=== PATIENT | female | born 1970 | race Caucasian/White ===

== ENCOUNTER 2016-02-21 15:06 | Outpatient (RCR) | payer BC ==
--- OUTSIDE RECORDS SUMMARY | 2015-11-25 16:02 | XMS REPORT | Continuity of Care Document ---
Author Author [facility] Organization [facility] Address Unknown Phone Unavailable Care Team Providers Care Sheet Rocker Name Role Phone Jacquelyn Richardson PCP [phone] Source Comments Some departments are not documenting in the electronic medical record. If you do not see the information that you expected, contact Release of Information in the Health Information Management department at [phone] for further assistance in locating additional records.[facility] Active Allergies and Adverse Reactions Allergen Noted Date Severity Reactions Comments Oxycodone 12/05/2014 Low ITCHING Took steroid or benadryl in the past for relief of itching Current Medications Prescription Sig. Disp. Refills Start End Date Status Date Desvenlafaxine (PRISTIQ) Take 1 Tab by mouth Active 100 mg Tb24 daily. omepraz[address](+) Take 40 mg by mouth Active (PRILOSEC) 40 mg capsule daily. metoprolol XL (TOPROL XL) Take 50 mg by mouth Active 50 mg tablet daily. Ranitidine HCl 150 mg cap Take 1 Cap by mouth daily Active as needed. Cetirizine 10 mg cap Take 1 Cap by mouth Active daily. vitamins, multiple tablet Take 1 Tab by mouth Active daily. folic acid 400 mcg tablet Take 400 mcg by mouth Active daily. calcium carbonate/vitamin Take 1 Tab by mouth Active D-3 (OSCAL-500+D) 1250 daily. Calcium Carb mg/200 unit tablet 1250mg delivers 500mg elemental Ca ascorbic acid (VITAMIN-C) Take 3,000 mg by mouth Active 500 mg tablet daily. BIOTIN/FA/VIT Take 1 Tab by mouth Active BCOMP&C/ZINC (BIOTIN daily. FORTE PO) hydrochlorothiazide Take 25 mg by mouth Active (HYDRODIURIL) 25 mg daily. tablet estradiol(+) (CLIMARA) Apply 1 Patch to top of Active 0.025 mg/24 hr patch skin as directed every 7 days. traMADol (ULTRAM) 50 mg Take 50 mg by mouth every Active tablet 6 hours as needed for Pain. Active Problems Problem Noted Date S/P hysterectomy 12/11/2014 Endometrial adenocarcinoma (HCC) 11/18/2014 Overview: Ms Hendrix is a 44 yo with a FIGO grade 1-2, Stage II adenocarcinoma of the uterus. CERTIFIED LEGAL SECRETARY SPECIALIST: Cee Thibodeaux MD PCP: Jacquelyn Richardson DO PRIOR THERAPY: 1. Ms Hendrix is a 44 yo who was seen by Dr. Cee Thibodeaux on 10/24/2014 for thickened endometrium ,menorrhagia and obesity. Prior to her visit with Dr. Thibodeaux, an ultrasound was done which showed a thickened endometrium of 1.8 cm with abnormal blood flow. Dr. Thibodeaux saw her on 10/24/2014 and did an EMB. Endometrial carcinoma, FIGO grade 1, arising in a background of CAH. 2. On 12/11/2014 she underwent a RA-TLHBSO,, & bilateral PLND. All 19 LN were negative; her tumor was 5 cm and extended into the cervix. I recommended postoperative radiation. Vaginal Cuff. The Gynecologic Oncology Group (GOG) defines high intermediate-risk based on age and any of three pathologic factors: the presence of deep myometrial invasion, grade 2 or 3 histology, or the presence of lymphovascular space invasion (LVSI) . Women have high intermediate-risk disease if they are: greater than 70 years with one risk factor, age 50 to 69 years with two risk factors. In the GOG 99 trial, two-thirds of all recurrences were in women who met these criteria. There is no known tests demonstrating size as a stratification. She has a close margin of 4 mm, but no LVSI and DOI within the endometrium is 3mm/12mm. I suspect her closest margin is due to the cervix. Her tumor is ER+, Her2/nu and P53 negative (Type I). She was last seen on 05/13/15 for follow up. She started vaginal cylinder brachytherapy treatments on 02/12/15 and completed therapy on 02/27/15. She was treated to 30 Gy in 5 fractions prescribed to the vaginal surface. She presents to the office today, 08/08/2015 for routine follow up. Last pap: 05/14/2015- normal L ast Assessment & Plan: Clinically AGUSTIN ROS and examination are negative. PLAN: RV in 11/2015, then only with Dr. Thibodeaux. Surveillance with pelvic and pap for an additional year, then yearly. Stop pap smears after 2 years. Discussed signs/symptoms associated with recurrence. Social History Tobacco Use Types Packs/Day Years Used Date Never Smoker Smokeless Tobacco: Never Used Alcohol Use Drinks/Week oz/Week Comments Yes 0 Standard 0.0 every once in a while. drinks or equivalent Last Filed Vital Signs Vital Sign Reading Time Taken Blood Pressure 127/66 08/08/2015 1:51 PM CDT Pulse 70 08/08/2015 1:51 PM CDT Temperature 36.6 C (97.9 F) 08/08/2015 1:51 PM CDT Respiratory Rate 18 08/08/2015 1:51 PM CDT Height 1.651 m (5' 5") 08/08/2015 1:51 PM CDT Weight 95.89 kg (211 lb 6.4 oz) 08/08/2015 1:51 PM CDT Body Mass Index 35.18 08/08/2015 1:51 PM CDT Oxygen Saturation 99% 08/08/2015 1:51 PM CDT Plan of Care Date Type Specialty Providers Description 12/05/2015 Appointment Oncology Nataliia Lai MD [address] [facility] [address] [place] [address] [phone] (Fax) 12/05/2015 Appointment Radiation Therapy Randy Parker MD [address] [facility] [address] [place] [address] [phone] (Fax) Health Maintenance Due Date Last Done Comments Physical (Comprehensive) 1976 Exam Pertussis Vaccine 1980 Tetanus Vaccine 1986 Breast Cancer Screening 2009 Influenza Vaccine 10/24/2015 Cervical Cancer Screening 05/13/2018 05/14/2015 Results from Last 3 Months Not on file
[~2016-02-21 15:06] MED LIST: DESV100T PO; DIAZ5TAB PO; DULO20CA; HCT25T; HORMONE PATCH TOP; KCL20TCR; LORA10CA PO; METO50TA2 PO; MULT-608; NAPR500T PO; NF-ESOM40C; OMEP10SU PO; ONDA8TAB13 PO; OXYC-202 PO; OXYC-464 PO; OXYC-471 PO; PRM25T PO
== END 2016-02-23 | disposition home or self-care (01) ==
PROVIDERS: ATTEND Physician Assistant
DX: S42.301D Unspecified fracture of shaft of humerus, right arm, subsequent encounter for fracture with routine healing (principal); W19.XXXD Unspecified fall, subsequent encounter; Y99.8 Other external cause status

== ENCOUNTER 2016-09-18 10:32 | Outpatient (RCR) | payer BC ==
[2016-10-08] MEDS ORDERED: LOVA20TA2 PO (16:56)
[2016-10-08] MEDS ORDERED: TRIA1TAB5 PO (16:56)
[2016-10-08] MEDS ORDERED: METO-272 PO (16:56)
[2016-10-08] MEDS ORDERED: ESTR42.52 TP (16:56)
[2016-10-08] MEDS ORDERED: OMEP40CA36 PO (16:56)
[2016-10-08] MEDS ORDERED: ERGO50006 PO (16:56)
[2016-10-08] MEDS ORDERED: DESV100T16 PO (16:56)
[2016-10-08] MEDS ORDERED: ESTR1PAT92 TD (16:56)
[2016-10-08] MEDS ORDERED: MULT-141 PO (16:58)
== END 2016-11-21 | disposition home or self-care (01) ==
LOC: CARD 10:32
PROVIDERS: ATTEND Internal Medicine Cardiovascular Disease
DX: R00.2 Palpitations (principal)
CPT/HCPCS: 93225; 93226

== ENCOUNTER → 2016-09-18 | Outpatient (CLI) | payer BC ==
[2016-09-18 11:47] LABS: ALANINE AMINOTRANSFERASE 27 U/L (0-55); ALBUMIN 3.8 GM/DL (3.2-4.5); ANION GAP 7 MMOL/L (5-14); ASPARTATE AMINO TRANSFERASE 23 U/L (5-34); BILIRUBIN,TOTAL 0.5 MG/DL (0.1-1.0); BLOOD UREA NITROGEN 13 MG/DL (7-18); BUN/CREATININE RATIO 17; CALCIUM 9.1 MG/DL (8.5-10.1); CARBON DIOXIDE 30 MMOL/L (21-32); CHLORIDE 103 MMOL/L (98-107); CHOLESTEROL 224 MG/DL (< 200); CREATININE SERUM 0.76 MG/DL (0.60-1.30); DIRECT LDL 154 MG/DL (1-129); GFR ESTIMATED > 60; GLUCOSE 83 MG/DL (70-105); POTASSIUM 3.9 MMOL/L (3.6-5.0); SODIUM 140 MMOL/L (135-145); TOTAL PROTEIN 7.5 GM/DL (6.4-8.2); TRIGLYCERIDES 169 MG/DL (<150); VLDL CHOLESTEROL 34 MG/DL (5-40)
[2016-09-18 12:06] LABS: THYROID STIMULATING HORMONE 2.21 UIU/ML (0.35-4.94)
== END ==
LOC: LAB 10:37
PROVIDERS: ATTEND Physician Assistant
DX: R07.89 Other chest pain (principal); E78.2 Mixed hyperlipidemia; R00.2 Palpitations
CPT/HCPCS: 36415; 80053; 80061; 82306; 83735; 84443

== ENCOUNTER 2016-10-08 14:59 | Observation (INO) | payer BC ==
[~2016-10-08] VITALS: Ht 165.1 cm; Wt 98.0 kg
[~2016-10-08 14:59] MED LIST changes: -OMEP10SU PO; +OMEP10SU2 PO
[2016-10-08] MEDS ORDERED: fentaNYL INJECTION 100 MCG/2 ML AMP IVP PRN (15:15)
[2016-10-08 16:23] VITALS: BP 153/73
[2016-10-08] MEDS ORDERED: OMEP40CA36 PO (16:56)
[2016-10-08] MEDS ORDERED: ESTR42.52 TP (16:56)
[2016-10-08] MEDS ORDERED: ESTR1PAT92 TD (16:56)
[2016-10-08] MEDS ORDERED: METO-370 PO (16:56)
[2016-10-08] MEDS ORDERED: ERGO50006 PO (16:56)
[2016-10-08] MEDS ORDERED: LOVA20TA2 PO (16:56)
[2016-10-08] MEDS ORDERED: DESV100T16 PO (16:56)
[2016-10-08] MEDS ORDERED: TRIA1TAB5 PO (16:56)
[2016-10-08] MEDS ORDERED: MULT-141 PO (16:58)
[2016-10-08] MEDS: NS IV 1000 ML 1,000 ML IV SCH (17:06)
[2016-10-08 17:07] LABS: BILIRUBIN,URINE NEGATIVE (NEGATIVE); KETONES,URINE NEGATIVE (NEGATIVE); LEUKOCYTE ESTERASE ,URINE NEGATIVE (NEGATIVE); NITRITE,URINE NEGATIVE (NEGATIVE); PH,URINE 6 (5-9); PROTEIN,URINE NEGATIVE (NEGATIVE); UROBILINOGEN,URINE NORMAL (NORMAL)
[2016-10-08] MEDS: ONDANSETRON 4 MG/2 ML (SDV) Z0FRAN IVP PRN ×2 (17:10→23:01)
[2016-10-08 17:17] LABS: SQUAMOUS EPITHELIAL CELL,UR RARE /HPF; WBC,URINE RARE /HPF
[2016-10-08] MEDS ORDERED: ESTRADIOL TD SCH (17:30)
[2016-10-08] MEDS ORDERED: [UNRECOGNIZED DRUG - OTHER] TD SCH (17:30)
[2016-10-08] MEDS ORDERED: NS 100 ML (IVPB) BAG IV ONE (18:15)
[2016-10-08] MEDS ORDERED: IOHEXOL 350 MG/ML 100 ML (OMNIPAQUE 350) VIAL IV ONE (18:15)
[2016-10-08 18:18] LABS: BASOPHILS % (AUTO) 0 % (0-10); EOSINOPHILS # (AUTO) 0.3 10^3/uL (0.0-0.3); EOSINOPHILS % (AUTO) 3 % (0-10); LYMPHOCYTES # (AUTO) 1.7 X 10^3 (1.0-4.0); LYMPHOCYTES % (AUTO) 20 % (12-44); MEAN CORPUSCULAR HEMOGLOBIN 30 PG (25-34); MEAN CORPUSCULAR HGB CONC 33 G/DL (32-36); MEAN CORPUSCULAR VOLUME 91 FL (80-99); MEAN PLATELET VOLUME 10.5 FL (7.4-10.4); MONOCYTES # (AUTO) 0.7 X 10^3 (0.0-1.0); MONOCYTES % (AUTO) 8 % (0-12); NEUTROPHILS # (AUTO) 5.6 X 10^3 (1.8-7.8); NEUTROPHILS % (AUTO) 68 % (42-75); PLATELET COUNT 326 10^3/uL (130-400); RED CELL DISTRIBUTION WIDTH 13.2 % (10.0-14.5); WHITE BLOOD COUNT 8.2 10^3/uL (4.3-11.0)
[2016-10-08 18:19] LABS: ALANINE AMINOTRANSFERASE 26 U/L (0-55); ALBUMIN 3.8 GM/DL (3.2-4.5); AMYLASE 75 U/L (25-125); ANION GAP 10 MMOL/L (5-14); ASPARTATE AMINO TRANSFERASE 21 U/L (5-34); BILIRUBIN,TOTAL 0.4 MG/DL (0.1-1.0); BLOOD UREA NITROGEN 10 MG/DL (7-18); BUN/CREATININE RATIO 13; CALCIUM 8.9 MG/DL (8.5-10.1); CARBON DIOXIDE 26 MMOL/L (21-32); CHLORIDE 103 MMOL/L (98-107); GFR ESTIMATED > 60; GLUCOSE 91 MG/DL (70-105); LIPASE 17 U/L (8-78); POTASSIUM 3.1 MMOL/L (3.6-5.0); SODIUM 139 MMOL/L (135-145); TOTAL PROTEIN 7.1 GM/DL (6.4-8.2)
--- NOTE | 2016-10-08 18:35 | Diagnostic Imaging Report ---
PROCEDURE: CT abdomen and pelvis with contrast. TECHNIQUE: Multiple contiguous axial images were obtained through the abdomen and pelvis after administration of intravenous contrast. INDICATION: Left lower quadrant pain. FINDINGS: The gallbladder is absent. There are fatty changes in the liver. The bile ducts are not dilated. The spleen, pancreas and adrenals are normal. The kidneys, ureters and bladder are normal. No acute bowel abnormality is seen with no evidence of diverticulitis. There is no pelvic mass. There is no free intraperitoneal air or fluid. IMPRESSION: No acute abnormality is seen. There are fatty changes in the liver. Dictated by: Dictated on workstation # [id number]
[2016-10-08 18:45] LABS: ERYTHROCYTE SEDIMENTATION RATE 28 MM/HR (0-20)
[2016-10-08 20:00] VITALS: BP 137/70
[2016-10-08] MEDS ORDERED: SIMvastatin 10 MG (ZOCOR) TAB PO SCH (21:00)
[2016-10-08] MEDS ORDERED: LORazepam INJ 2 MG/ML (ATIVAN) VIAL IVP PRN (21:30)
[2016-10-08] MEDS: POTASSIUM CL 10MEQ/50ML IVPB 50 ML IV SCH (22:54)
[2016-10-09] VITALS: BP 124/78
[2016-10-09] MEDS: POTASSIUM CL 10MEQ/50ML IVPB 50 ML IV SCH ×7 (00:30→16:06)
[2016-10-09] MEDS: NS IV 1000 ML 1,000 ML IV SCH ×3 (01:49→16:07)
[2016-10-09 04:00] VITALS: BP 122/66
[2016-10-09] MEDS ORDERED: MULTIVIT W/MINERALS TAB (THERAGRAN M) PO SCH (07:00)
[2016-10-09] MEDS ORDERED: VENlafaxine XR 75 MG (EFFEXOR XR) CAP PO SCH (07:00)
[2016-10-09] MEDS ORDERED: PANTOPRAZOLE 40 MG (PROTONIX) TAB PO SCH ×2 (07:00→09:00)
[2016-10-09 07:21] LABS: BASOPHILS % (AUTO) 1 % (0-10); EOSINOPHILS # (AUTO) 0.2 10^3/uL (0.0-0.3); EOSINOPHILS % (AUTO) 4 % (0-10); LYMPHOCYTES # (AUTO) 1.4 X 10^3 (1.0-4.0); LYMPHOCYTES % (AUTO) 24 % (12-44); MEAN CORPUSCULAR HEMOGLOBIN 30 PG (25-34); MEAN CORPUSCULAR HGB CONC 33 G/DL (32-36); MEAN CORPUSCULAR VOLUME 93 FL (80-99); MEAN PLATELET VOLUME 10.6 FL (7.4-10.4); MONOCYTES # (AUTO) 0.6 X 10^3 (0.0-1.0); MONOCYTES % (AUTO) 10 % (0-12); NEUTROPHILS # (AUTO) 3.6 X 10^3 (1.8-7.8); NEUTROPHILS % (AUTO) 62 % (42-75); PLATELET COUNT 274 10^3/uL (130-400); RED BLOOD COUNT 4.03 10^6/uL (4.35-5.85); RED CELL DISTRIBUTION WIDTH 13.1 % (10.0-14.5); WHITE BLOOD COUNT 5.8 10^3/uL (4.3-11.0)
[2016-10-09 07:44] LABS: ALANINE AMINOTRANSFERASE 22 U/L (0-55); ALBUMIN 3.3 GM/DL (3.2-4.5); ANION GAP 10 MMOL/L (5-14); ASPARTATE AMINO TRANSFERASE 16 U/L (5-34); BILIRUBIN,TOTAL 0.5 MG/DL (0.1-1.0); BLOOD UREA NITROGEN 8 MG/DL (7-18); BUN/CREATININE RATIO 10; CALCIUM 8.5 MG/DL (8.5-10.1); CARBON DIOXIDE 24 MMOL/L (21-32); CHLORIDE 107 MMOL/L (98-107); CREATININE SERUM 0.77 MG/DL (0.60-1.30); GFR ESTIMATED > 60; GLUCOSE 94 MG/DL (70-105); POTASSIUM 3.3 MMOL/L (3.6-5.0); SODIUM 141 MMOL/L (135-145); TOTAL PROTEIN 6.2 GM/DL (6.4-8.2)
[2016-10-09 08:00] VITALS: BP 129/65
--- NOTE | 2016-10-09 08:43 | Short Stay Summary-Hospitalist ---
HPI History of Present Illness: HPI/Chief Complaint CC: LLQ abdominal pain with dehydration HPI: This is a 46-year-old white female clinic patient of mine with a past medical history of hyperlipidemia and glucose intolerance the presented to my office as a work in appointment due to fever and weakness. She reports she hadn 't been eating or drinking too well the last several days and fever was 100 at home but denied any cough muscle aches sore throat or bowel problems. Upon exam she had left lower quadrant pain consistent with possible diverticulitis since she had not had a colonoscopy since she was under the age of 49 so I empirically placed on IV fluids obtained CT scan and consult to Dr. Hank luong performed her cholecystectomy in the past and admitted her for observation. All of her labs remain normal and CT scan showed no evidence of a diverticulitis so this was deemed a febrile viral illness with exhaustion from a change of job and commuting back and forth to [place] and will discharge her and close follow-up at the clinic will be arranged. Hypokalemia and dehydration were both addressed during hospitalization likely contributing to weakness. Source: patient Exam Limitations: no limitations Date Seen 10/09/16 Time Seen by Provider: 07:30 Attending Physician Jacquelyn Richardson DO PCP Jacquelyn Richardson DO Referring Physician Date of Admission Oct 08, 2016 at 16:06 Home Medications & Allergies Home Medications Reviewed patient Home Medication Reconciliation Form Allergies Allergies Coded Allergies NKANo Known Allergies (Unverified Allergy, Mild, 06/22/09) Past Yzkcrhi-Vxuggi-Vxgati Hx Patient Social History Marrital Status: Employed/Student: employed Alcohol Use: Occasionally Uses Recreational Drug Use: No Smoking Status: Never a Smoker Physical Abuse Screen: No Sexual Abuse: No Recent Foreign Travel: No Contact w/other who traveled: No Recent Infectious Disease Expo: No Immunizations Up To Date Tetanus Booster (TDap): More than 5yrs Date of Influenza Vaccine: Nov 23, 2015 Seasonal Allergies Seasonal Allergies: No Surgeries HX Surgeries: Yes (BRACHITHERAPY, Carin, Carpel Tunnel Syndrome, Cyst removal from ovaries) Surgeries: Gallbladder, Hysterectomy Respiratory Hx Respiratory Disorders: No Cardiovascular Hx Cardiovascular Disorders: Yes Cardiac Disorders: High Cholesterol, Hypertension, Palpitations Neurological Hx Neurological Disorders: No Genitourinary Hx Genitourinary Disorders: No Gastrointestinal Hx Gastrointestinal Disorders: Yes Gastrointestinal Disorders: Gastroesophageal Reflux Musculoskeletal Hx Musculoskeletal Disorders: No Endocrine Hx Endocrine Disorders: No HEENT HX ENT Disorders: No Cancer Hx Cancer: Yes Cancer: Uterine Psychosocial Hx Psychiatric Problems: Yes Behavioral Health Disorders: Depression Blood Transfusions Hx Blood Disorders: No Adverse Reaction to a Blood Tr: No Family Medical History Significant Family History: No Pertinent Family Hx Family Hx: Neoplasm 19 FATHER 19 MOTHER Review of Systems Constitutional: see HPI, chills, fever, weakness EENTM: no symptoms reported Respiratory: no symptoms reported Cardiovascular: no symptoms reported Gastrointestinal: no symptoms reported Musculoskeletal: no symptoms reported Skin: no symptoms reported Psychiatric/Neurological: No Symptoms Reported All Other Systems Reviewed Negative Unless Noted: Yes Physical Exam Physical Exam Vital Signs Vital Sign - Last 12Hours 10/08/16 16:23 Temp 98.0 Pulse 89 Resp 20 B/P (MAP) 153/73 Pulse Ox 95 O2 Delivery Room Air Capillary Refill : General Appearance: No Apparent Distress, WD/WN, Other (actuely ill and dehydrated and weak) Eyes: Bilateral Eye Normal Inspection, Bilateral Eye PERRL HEENT: PERRL/EOMI, Normal ENT Inspection, Pharynx Normal Neck: Full Range of Motion, Normal Inspection, Non Tender, Supple, Carotid Bruit Respiratory: Chest Non Tender, Lungs Clear, Normal Breath Sounds, No Accessory Muscle Use, No Respiratory Distress Cardiovascular: Regular Rate, Rhythm, No Edema, No Gallop, No JVD, No Murmur, Normal Peripheral Pulses Gastrointestinal: Normal Bowel Sounds, No Organomegaly, No Pulsatile Mass, Non Tender (LLQ pain noted yesterday is resolved), Soft Back: Normal Inspection, No CVA Tenderness, No Vertebral Tenderness Extremity: Normal Capillary Refill, Normal Inspection, Normal Range of Motion, Non Tender, No Calf Tenderness, No Pedal Edema Neurologic/Psychiatric: Alert, Oriented x3, No Motor/Sensory Deficits, Normal Mood/Affect Skin: Normal Color, Warm/Dry Lymphatic: No Adenopathy Results Results/Procedures Lab Laboratory Tests 10/08/16 17:40 10/09/16 06:28 Short Stay Diagnosis Discharge Diagnosis-Short Stay Admission Diagnosis Assessment: Acute onset left lower quadrant abdominal pain on exam with dehydration during office visit placed in observation status placed on IV fluids replace potassium and CT scan revealed no diverticulitis Hypertension History of palpitations managed by Dr. Ortiz on metoprolol Hyperlipidemia Glucose intolerance Uterine cancer status post hysterectomy Depression Final Discharge Diagnosis Assessment: Acute onset left lower quadrant abdominal pain on exam with dehydration during office visit placed in observation status placed on IV fluids replace potassium and CT scan revealed no diverticulitis Hypertension History of palpitations managed by Dr. Ortiz on metoprolol Hyperlipidemia Glucose intolerance Uterine cancer status post hysterectomy Depression Conclusion Plan Plan: Discharge home DC IV fluids after potassium is replaced Follow-up my clinic next week Clinical Quality Measures DVT/VTE Risk/Contraindication: Risk Factor Score Per Nursin RFS Level Per Nursing on Admit: 2=Moderate JACQUELYN RICHARDSON DO Oct 09, 2016 08:43
[2016-10-09] MEDS ORDERED: LORATADINE (CLARITIN) 10 MG TAB PO SCH (09:00)
[2016-10-09] MEDS ORDERED: meTOproloL SUCCINATE 50 MG (TOPROL XL) TAB PO SCH (09:00)
[2016-10-09] MEDS ORDERED: TRIAMTERENE/HCTZ 75-50 (MAXZIDE,DYAZIDE) TABLET PO SCH (09:00)
[2016-10-09] MEDS ORDERED: VITAMIN D2 50,000 UNITS (1.25 MG) CAP PO SCH (09:00)
[2016-10-09] MEDS: MAGNESIUM 1 GM/100 ML IVPB 100 ML IV SCH ×2 (10:12→11:28)
[2016-10-09] MEDS: ONDANSETRON 4 MG/2 ML (SDV) Z0FRAN IVP PRN (10:27)
[2016-10-09 12:00] VITALS: BP 134/67
[2016-10-09 16:20] VITALS: BP 123/65
--- NOTE | 2016-10-11 04:42 | CONSULTATION REPORT ---
DATE OF SERVICE: 10/08/2016 ATTENDING/PRIMARY CARE PHYSICIAN: Dr. Jacquelyn Richardson. HISTORY OF PRESENT ILLNESS: The patient is a 46-year-old female with mild fevers as well as feelings of some stomach upset followed by nausea for the past five days. She reports that she has had a history of peptic ulcer disease and has taken PPI acid reducers as well as Carafate before in the past. She reports that this time around for the past five days she has had some mild fevers on an intermittent basis and has not had any hunger and has become dehydrated. She also reports that she has had some epigastric crampy pain as well as a burning sensation. Since being admitted and placed on IV antibiotics and being started on Protonix she has felt considerably better and even does feel hungry at this point. A CT scan was also performed which did not show any abnormalities. Lab work was also normal. She does report that she is under a significant amount of stress due to work as well as commuting longer for work, which is new for her and that has caused a significant amount of stress in her life. We feel that her symptoms are most likely secondary due to a viral etiology; however also a stress-induced gastritis. PAST MEDICAL HISTORY: Anxiety, gastroesophageal reflux disease, peptic ulcer disease, depression. PAST SURGICAL HISTORY: Laparoscopic cholecystectomy and bilateral carpal tunnel release, ovarian cystectomy. ALLERGIES: No known drug allergies. MEDICATIONS: Triamterene/hydrochlorothiazide 75/50 mg daily, omeprazole 40 mg daily, metoprolol 50 mg daily, lovastatin 20 mg daily, loratadine 10 mg daily, estradiol 42 gram cream four days a week, estradiol 0.025 patch 2 days a week, venlafaxine 100 mg daily. SOCIAL HISTORY: Negative smoke, negative alcohol. FAMILY HISTORY: Mother breast cancer. VITAL SIGNS: Temperature 97.8, blood pressure 137/70, pulse 86, respirations 21, pulse ox 97% on room air. REVIEW OF SYSTEMS: Well-nourished female currently in no acute distress. She is not experiencing any shortness of breath or difficulty breathing. No chest pain, palpitations, diaphoresis. Intermittent episodes of nausea; however, no vomiting as well as intermittent episodes of mild fevers, which have resolved. No diarrhea, constipation, no red blood per rectum, no dark tarry stools. Mild fevers, no recent inadvertent weight loss. All other review of systems negative. PHYSICAL EXAMINATION: CHEST: Clear. Good breath sounds bilaterally. HEART: Regular, no murmurs. EXTREMITIES: No lower extremity edema, negative Homans sign. HEENT: No scleral icterus. NECK: No cervical lymphadenopathy. ABDOMEN: Soft with mild discomfort in the upper abdominal region upon deep palpation. There are no peritoneal signs, no guarding, no rebound. No hernias. SKIN: Warm and dry. LABORATORY DATA: WBC 8.2, hemoglobin 13.2, hematocrit 40, platelets 326, total bilirubin 0.4, AST 21, ALT 26, alkaline phosphatase 98, amylase 75, lipase 17. Urinalysis a few bacteria. ASSESSMENT AND PLAN: A 46-year-old female with a viral gastritis as well as stress-induced gastritis. Due to her symptoms she has had intermittent episodes of fevers as well as nausea and dehydration which has exacerbated her symptoms. She has done much better since being IV hydrated and placed on Protonix. We will advance her diet and when she is tolerating a diet and liquids and does feel better, she may be discharged home. We will start her on Protonix 40 mg b.i.d. for the next 2 weeks and then on a daily basis as well as Carafate 1 gram q.i.d. for the next two weeks and then on a p.r.n. basis. She does have a significant amount of anxiety and we will also proceed with a trial of alprazolam 1 mg t.i.d. p.r.n. Job ID: [id number] DocumentID: [id number] Dictated Date: 10/08/2016 21:41:10 Photolettering Machine Operator Date: 10/08/2016 22:38:53 Dictated By: MADISON LANDERS MD [facility]
[2016-10-12] MEDS ORDERED: ESTRADIOL VAGINAL CREAM 42.5 GM (ESTRACE) VG SCH (17:30)
== END 2016-10-09 08:39 | disposition home or self-care (01) ==
LOC: UNDOADMOB 16:06 → 4TH 16:06 → UNDODISOB 10-09 17:20
PROVIDERS: ADMIT Internal Medicine; ATTEND Internal Medicine
DX: R10.32 Left lower quadrant pain (principal); E86.0 Dehydration; I10 Essential (primary) hypertension; R00.2 Palpitations; E78.5 Hyperlipidemia, unspecified; E74.39 Other disorders of intestinal carbohydrate absorption; F33.9 Major depressive disorder, recurrent, unspecified; K21.9 Gastro-esophageal reflux disease without esophagitis; F41.9 Anxiety disorder, unspecified; Z90.49 Acquired absence of other specified parts of digestive tract; Z90.710 Acquired absence of both cervix and uterus; Z85.42 Personal history of malignant neoplasm of other parts of uterus
CPT/HCPCS: 36415; 74177; 80053; 81000; 82150; 83690; 85025; 85652; 99211; G0378

== ENCOUNTER → 2017-01-27 | Outpatient (CLI) | payer BC ==
[~2017-01-27] MED LIST changes: +DESV100T16 PO; +ERGO50006 PO; +ESTR1PAT92 TD; +ESTR42.52 TP; +LOVA20TA2 PO; +METO-370 PO; +METO50TA15 PO; -METO50TA2 PO; +MULT-141 PO; +NAPR-1071 PO; -NAPR500T PO; +OMEP40CA36 PO; +TRIA1TAB5 PO
--- NOTE | 2017-01-28 18:58 | Diagnostic Imaging Report ---
Bilateral screening mammogram 2D views with tomosynthesis The current study was also evaluated with a Computer Aided Detection (CAD) system. INDICATION: Screening. No current complaints stated on the questionnaire. COMPARISON: 05/16/2015. FINDINGS: The breasts are composed of heterogeneously dense parenchyma which may decrease mammographic sensitivity. Allowing for technique and positional differences, no suspicious change is seen. IMPRESSION: Dense breasts with no definite change. ACR BI-RADS Category 2: Benign findings. Result letter will be mailed to the patient. Note: At least 10% of breast cancer is not imaged by mammography. Dictated by: Dictated on workstation # [id number]
== END ==
LOC: RAD 10:27
PROVIDERS: ATTEND Obstetrics & Gynecology
DX: Z12.31 Encounter for screening mammogram for malignant neoplasm of breast (principal)

== ENCOUNTER 2017-09-23 09:25 | Emergency (ER) | payer BC ==
[~2017-09-23] VITALS: Ht 165.1 cm; Wt 93.9 kg
--- NOTE | 2017-09-23 10:05 | ED Lower Extremity ---
General Chief Complaint: Lower Extremity Stated Complaint: LT ANKLE PAIN Nursing Triage Note: TO ROOM PER W/C REPORTS WAS WALKING DOWN STAIRS WHEN SHE TWISTED HER ANKLE .C/O PAIN IN L ANKLE. Nursing Sepsis Screen: No Definite Risk Source: patient Exam Limitations: no limitations History of Present Illness Date Seen by Provider: Sep 23, 2017 Time Seen by Provider: 09:26 Initial Comments Patient presents to ER by private conveyance with a chief complaint that this morning while getting out of her house carrying an arm load of boxes she missed her step and rolled her ankle. She is rolled this ankle before in the past. Sure a popping sensation and now she is having pain and inability to us put pressure on it. She put ice on it initially but has not taken any Tylenol. She did take some Motrin and says it is not helping with the pain yet. She does not have any other significant medical or surgical history other than multiple fractures and ORIF right upper extremity. She does not have any allergies. No numbness weakness but she feels that her toes are cold now. She is not diabetic. Allergies and Home Medications Allergies Uncoded Allergies: pain meds (Adverse Reaction, Intermediate, make her itch, 09/23/17) takes benadryl before taking. Home Medications Desvenlafaxine Succinate 100 Mg Tab.er.24h, 100 MG PO DAILY, (Reported) Ergocalciferol (Vitamin D2) 50,000 Unit Capsule, 50,000 UNITS PO UD, (Reported) TAKES 2 TIMES PER WEEK / HAS NOT STARTED THIS MEDICATION OF YET Estradiol 1 Each Patch.tdsw, 1 PATCH TD SuTh, (Reported) Estradiol 42.5 Gm Cream.appl, 1 GM TP Ever, (Reported) Loratadine 10 Mg Capsule, 10 MG PO DAILY, (Reported) Lovastatin 20 Mg Tablet, 20 MG PO DAILY, (Reported) HAS NOT STARTED OF YET Metoprolol Succinate 50 Mg Tab.er.24h, 50 MG PO DAILY, (Reported) Multivit with Calcium,Iron,Min 1 Each Tablet, 1 TAB PO DAILY, (Reported) Omeprazole 40 Mg Capsule.dr, 40 MG PO DAILY, (Reported) Triamterene/Hydrochlorothiazid 1 Each Tablet, 1 TAB PO DAILY, (Reported) Patient Home Medication List Home Medication List Reviewed: Yes Constitutional: No chills, No diaphoresis EENTM: No ear discharge, No ear pain Respiratory: No short of breath, No wheezing Cardiovascular: No chest pain Gastrointestinal: No abdominal pain, No constipation, No diarrhea, No nausea, No vomiting Genitourinary: No discharge, No dysuria : No Musculoskeletal: see HPI; No back pain; joint pain Skin: No pruritus, No rash Past Zanlxjm-Xqmnmu-Lhkxlm Hx Patient Social History Alcohol Use: Denies Use Number of Drinks Today: Alcohol Beverage of Choice: Wine Recreational Drug Use: No Smoking Status: Never a Smoker Recent Foreign Travel: No Contact w/Someone Who Travel: No Recent Infectious Disease Expo: No Immunizations Up To Date Tetanus Booster (TDap): More than 5yrs PED Vaccines UTD: Yes Date of Influenza Vaccine: Nov 23, 2015 Seasonal Allergies Seasonal Allergies: No Past Medical History Surgeries: Yes (BRACHITHERAPY, Carin, Carpel Tunnel Syndrome, Cyst removal from ovaries) Gallbladder, Hysterectomy Respiratory: No Cardiac: Yes High Cholesterol, Hypertension, Palpitations Neurological: No COORDINATOR OF EVALUATION History: Hysterectomy Gastrointestinal: Yes Gastroesophageal Reflux Musculoskeletal: No Endocrine: No Cancer: Yes Uterine Psychosocial: Yes Depression Blood Disorders: No Adverse Reaction/Blood Tranf: No Family Medical History Neoplasm 19 FATHER 19 MOTHER No Pertinent Family Hx Physical Exam Vital Signs Vital Signs - First Documented 09/23/17 09:26 Temp 97.2 Pulse 87 B/P (MAP) 139/108 (118) Pulse Ox 97 O2 Delivery Room Air Capillary Refill : Less Than 3 Seconds Height, Weight, BMI Height: 5'5.00" Weight: 207lbs. 0.0oz. 93.427704dw; 35.9 BMI Method:Stated General Appearance: WD/WN, no apparent distress HEENT: PERRL/EOMI, pharynx normal Neck: full range of motion, normal inspection Cardiovascular: normal peripheral pulses, regular rate, rhythm Respiratory: no respiratory distress, no accessory muscle use Ankles: right ankle non-tender; bilateral ankle normal inspection; right ankle normal range of motion, right ankle no evidence of injury; left ankle bone tenderness (proximal base of the fifth metatarsal as well as over the navicular bone are tender to palpation.), left ankle limited range of motion Feet: bilateral foot other (dorsal pedal and posterior tibial pulses 2 out of 4 bilateral symmetric) Neurologic/Tendon: normal sensation, normal motor functions, normal tendon functions, responds to pain, no evidence tendon injury Neurologic/Psychiatric: no motor/sensory deficits (sensation intact times all 5 digits.), alert, normal mood/affect, oriented x 3 Skin: normal color, warm/dry Progress/Results/Core Measures Results/Orders My Orders Orders - RITO PENNINGTON Foot, Left, 3 Views (09/23/17 09:35) Vital Signs/I&O 09/23/17 09:26 Temp 97.2 Pulse 87 B/P (MAP) 139/108 (118) Pulse Ox 97 O2 Delivery Room Air Blood Pressure Mean: 118 Progress Progress Note : Time: 10:04 Progress Note Pain is localized in the foot more so than the ankle so we'll x-ray the foot 3 views. We have offered her pain medicine and she has declined at this time. Diagnostic Imaging Diagonstic Imaging: Xray Plain Films/CT/US/NM/MRI: other (left foot 3 view) Comments VIA [facility], [facility]. [place], [place] NAME: DALLASAlbinSEMAJ [facility] REC#: [id number] PT STATUS: REG ER : 1970 PHYSICIAN: RITO PENNINGTON MD ADMIT DATE: 09/23/17/ER Draft Date of Exam:09/23/17 FOOT, LEFT, 3 VIEWS Indication: Injury to the left foot with pain on the lateral side. Time of exam 10:12 AM 3 views of the left foot were obtained. Comparison is made with prior exam from 02/13/2016. The metatarsals are intact. The phalanges are intact. Midfoot and hindfoot are unremarkable. No acute fracture is seen. There is a well-corticated osseous density noted laterally at the calcaneocuboid joint. This was present on prior radiographs. There is a large plantar calcaneal spur. Impression: No acute bony abnormality is detected. Dictated on workstation # [id number] Dict: 09/23/17 1011 Trans: 09/23/17 1014 [facility] [id number] Interpreted by: HEATHER MACEDO MD Electronically signed by: Reviewed: Reviewed by Me Departure Impression Primary Impression: Sprain and strain of foot Disposition: 01 HOME, SELF-CARE Condition: Stable Departure-Patient Inst. Decision time for Depature: 10:36 Referrals: JORDAN WASHINGTON DO (PCP/Family) Primary Care Physician Patient Instructions: Ankle Strengthening Exercises Add. Discharge Instructions: For the first 3 days apply ice for 20 minutes every 2-4 hours as needed for swelling or pain. Keep your foot elevated above the level of your heart when possible and stay off that using the air splint as well as crutches. You can also wrap your foot with an Huy bandage for some compression. If you're not seeing significant improvement in the pain and you're foot within the first 1-2 weeks he should follow up with your primary care doctor for reevaluation. All discharge instructions reviewed with patient and/or family. Voiced understanding. RITO PENNINGTON Sep 23, 2017 10:05
--- NOTE | 2017-09-23 10:15 | Diagnostic Imaging Report ---
Indication: Injury to the left foot with pain on the lateral side. Time of exam 10:12 AM 3 views of the left foot were obtained. Comparison is made with prior exam from 02/13/2016. The metatarsals are intact. The phalanges are intact. Midfoot and hindfoot are unremarkable. No acute fracture is seen. There is a well-corticated osseous density noted laterally at the calcaneocuboid joint. This was present on prior radiographs. There is a large plantar calcaneal spur. Impression: No acute bony abnormality is detected. Dictated by: Dictated on workstation # [id number]
[2017-09-23 10:47] VITALS: BP 137/100
--- OUTSIDE RECORDS SUMMARY | 2017-09-23 15:51 | XMS REPORT | Clinical Summary ---
Author Author [facility] Organization [facility] Address Unknown Phone Unavailable Care Team Providers Care [employer] Curriculum Developer Name Role Phone RichardsonJacquelyn dick PCP Concha Krause RN Unavailable Unavailable Nataliia Lai MD Unavailable Ju Valdovinos SENIOR LINUX SYSTEMS ENGINEER Unavailable Reny Garg SENIOR LINUX SYSTEMS ENGINEER-BARREL CUTTER Unavailable Randy Parker MD Unavailable Donna Moya RN Unavailable Unavailable Source Comments Some departments are not documenting in the electronic medical record. If you do not see the information that you expected, contact Release of Information in the Health Information Management department at [phone] for further assistance in locating additional records.[facility] Allergies Active Allergy Reactions Severity Noted Date Comments Oxycodone ITCHING Low 12/05/2014 Took steroid or benadryl in the past [...] tablet 6 hours as needed for Pain. baclofen (LIORESAL) 20 mg Take 20 mg by mouth. Active tablet ALLI/CORN/TIM/COUCH Take by mouth. Thiazine Active GRAS/HYDRG (DIURETIC PO) Active Problems Problem Noted Date S/P hysterectomy 12/11/2014 Endometrial adenocarcinoma (HCC) 11/18/2014 Overview: Ms Hendrix is a 44 yo with a FIGO grade 1-2, Stage II adenocarcinoma of the uterus. PRODUCT MANAGEMENT CONSULTANT: Cee Thibodeaux MD PCP: Jacquelyn Richardson DO [...] Her2/nu and P53 negative (Type I). She started vaginal cylinder brachytherapy treatments on 02/12/15 and completed therapy on 02/27/15. She was treated to 30 Gy in 5 fractions prescribed to the vaginal surface. She presents to the office today,12/05/2015 for routine follow up. She was last seen in 07/2015. Last pap: 05/14/2015- normal L ast Assessment & Plan: She is now 1 year from her surgery and 9 months from completion of vaginal brachytherapy. She is clinically AGUSTIN. PLAN: Pap smear. Due to low risk of recurrence, will have her return to Dr. Thibodeaux for continued care. She will need a pelvic and pap smear q 6 months for another year., then yearly examinations. The patient stated that she needed yearly wellness examinations per her work-will have through Dr. Thibodeaux. Family History Medical History Relation Name Comments Cancer Father Arthritis-rheumatoid Maternal Grandmother Arthritis-rheumatoid Mother Relation Name Status Comments Father Maternal Grandmother Mother Social History Tobacco Use Types Packs/Day Years Used Date Never Smoker Smokeless Tobacco: Never Used Alcohol Use Drinks/Week oz/Week Comments Yes 0 Standard 0.0 every once in a while. drinks or equivalent Sex Assigned at Date Recorded Not on file Last Filed Vital Signs Vital Sign Reading Time Taken Blood Pressure 141/81 12/05/2015 12:00 PM CDT Pulse 69 12/05/2015 12:00 PM CDT Temperature 36.8 C (98.3 F) 12/05/2015 12:00 PM CDT Respiratory Rate 16 12/05/2015 11:11 AM CDT Oxygen Saturation 100% 12/05/2015 12:00 PM CDT Inhaled Oxygen - - Concentration Weight 96.7 kg (213 lb 3.2 oz) 12/05/2015 12:00 PM CDT Height 165.1 cm (5' 5") 12/05/2015 12:00 PM CDT Body Mass Index 35.48 12/05/2015 12:00 PM CDT Plan of Treatment Health Maintenance Due Date Last Done Comments PHYSICAL (COMPREHENSIVE) 1976 EXAM PERTUSSIS VACCINE 1980 HIV SCREENING 1984 TETANUS VACCINE 1986 BREAST CANCER SCREENING 2009 INFLUENZA VACCINE 11/22/2017 CERVICAL CANCER SCREENING 12/04/2018 12/05/2015, 05/14/2015 Results Not on filefrom Last 3 Months
--- OUTSIDE RECORDS SUMMARY | 2017-09-23 15:51 | XMS REPORT | Clinical Summary ---
Author Author User, [employer] Organization Jacquelyn Richardson DO, FACP Address Unknown Phone Allergies, Adverse Reactions, Alerts Allergy Name Reaction Description Start Date Severity Status Provider DEMEROL rash Critical Active Jacquelyn Richardson Conditions or Problems Problem Name Problem Code Onset Date Status Entry Date Provider Comment Standard Description Annotate CERVICAL RADICULOPATHY 723.4 Resolved Jacquelyn Richardson Brachial neuritis or radiculitis NOS PALPITATIONS, OCCASIONAL 785.1 Active Jacquelyn Richardson Palpitations GERD 530.81 Active Jacquelyn Richardson Esophageal reflux ANXIETY 300.00 Active Jacquelyn Richardson Anxiety state, unspecified HYPERGLYCEMIA, MILD 790.6 Active Jacquelyn Richardson Other abnormal blood chemistry UNSPECIFIED ADVERSE EFFECT OF INSULIN 995.23 Active Jacquelyn Richardson Unspecified adverse effect of insulin DIABETES MELLITUS, NONINSULIN DEPENDENT (NIDDM) 250.02 Active Jacquelyn Richardson Diabetes mellitus without mention of complication, type II or unspecified type, uncontrolled Medication List Medication Instructions Start Date Stop Date Generic Name NDC Status Provider Patient Instruction METFORMIN HCL 500 MG TABS 1 PO BID METFORMIN HCL 34215793700 Active Jacquelyn Richardson PRISTIQ 50 MG [id number] 1 PO daily DESVENLAFAXINE SUCCINATE 75229693872 Active Jacquelyn Richardson OMEPRAZOLE 40 MG CPDR 1 PO daily OMEPRAZOLE 09841694621 Active Jacquelyn Richardson METOPROLOL SUCCINATE ER 50 MG [id number] 1 PO daily METOPROLOL SUCCINATE 38183397697 Active Jacquelyn Concha Richardson Vital Signs Date Name Value Unit Range Description blood pressure, diastolic - 8462-4 80 mm[Hg] BP jean blood pressure, systolic - 8480-6 130 mm[Hg] BP sys height E&M - 8302-2 209 [in_us] Bdy height pulse rate E&M - 8867-4 70 /min Heart rate respiratory rate E&M - 9279-1 14 /min Resp rate Diagnostic Results Date Name Value Unit Range Description Clinical Lists Update: CBC,CMP,FLP,TSH,FREE T4,HGA1C,MICROALBUMIN - Chemistry Estimated Glomerular Filtration Rate (calc) >60 mL/min/1.73m2 albumin, serum 4.3 g/dL cholesterol/HDL ratio, serum, percent 3.98 anion gap, serum 3 sodium, serum 135 mmol/L triglyceride, serum, fasting 110 mg/dL bilirubin, serum, total 0.3 mg/dL alanine aminotransferase (SGPT), serum 24 U/L aspartate aminotransferase (SGOT), serum 22 U/L protein, total, serum 7.6 g/dL potassium, serum 4.0 mmol/L LDL cholesterol, serum 115 mg/dL thyroid stimulating hormone, serum 2.085 u[iU]/mL hemoglobin A1C, blood, as % of total hemoglobin 5.5 % HDL cholesterol, serum 46 mg/dL thyroxine, serum, free 1.03 ng/dL creatinine, serum 0.77 mg/dL carbon dioxide, venous blood 28 mmol/L cholesterol, serum 183 mg/dL chloride, serum 104 mmol/L calcium, serum 9.7 mg/dL urea nitrogen, blood 15 mg/dL alkaline phosphatase, serum 78 U/L glucose, plasma fasting 87 mg/dL Clinical Lists Update: CBC,CMP,FLP,TSH,FREE T4,HGA1C,MICROALBUMIN - Hematology red blood cell distribution width 13.0 % hematocrit, blood 41.1 % hemoglobin, blood 13.4 g/dL platelet count 350 10*3/mm3 erythrocyte (RBC) count 4.40 10*6/mm3 leukocyte count, blood 10.5 10*3/mm3 mean corpuscular volume, RBC 93.4 fL Clinical Lists Update: CBC,CMP,FLP,TSH,FREE T4,HGA1C,MICROALBUMIN - Urinalysis microalbumin, urine, semiquantitative 23.7 mg/dL Clinical Lists Update: HGA1C - Chemistry hemoglobin A1C, blood, as % of total hemoglobin 5.8 % Lab Report: A1C HPLC - Chemistry hemoglobin A1C, blood, as % of total hemoglobin 5.5 % 4.0-5.6 Lab Report: CBC - Chemistry lymphocytes, absolute, manual 3.17 10E9/L {Cells}/uL 1.00-4.00 basophils, absolute, manual 0.02 10E9/L {Cells}/uL 0.00-0.20 mean corpuscular hemoglobin concentration, rbc 32.6 g/dL 31.0- 34.9 eosinophils, absolute, manual 0.22 10E9/L {Cells}/uL 0.00-0.45 monocytes, absolute, manual 0.78 10E9/L {Cells}/uL 0.20-0.80 polymorphonuclear neutrophils, absolute, manual 6.31 10E9/L { Cells}/uL 1.80-7.80 Lab Report: CBC - Hematology monocytes as percent of blood leukocytes 7.4 % neutrophil count, CSF 60.1 % platelet count 350 142-360 7410/08/21 hemoglobin, blood 13.4 g/dL 11.6-15.7 mean corpuscular volume, RBC 93.4 fL 81.7-100.0 mean platelet volume 11.5 fL 9.4-12.8 basophils as percent of blood leukocytes, automated count 0.2 % lymphocytes as percent of blood leukocytes, manual count 30.2 % mean corpuscular hemoglobin, RBC 30.5 pg 26.1-33.3 hematocrit, blood 41.1 % 35.8-46.9 eosinophils as percent of blood leukocytes 2.1 % Lab Report: CHEM 14 - Chemistry potassium, serum 4.0 mmol/L 3.5-5.5 calcium, serum 9.7 mg/dL 8.5-10.5 bilirubin, serum, total 0.3 mg/dL 0.1-1.0 albumin, serum 4.3 g/dL 3.9-4.9 chloride, blood 104 mmol/L 96-108 bicarbonate, serum 28 mmol/L 18-30 urea nitrogen, blood 15 mg/dL 5-19 blood glucose, random 87 mg/dL 70-100 sodium, serum 135 mmol/L 422-287 7254/08/21 protein total, urine 7.6 GM/DL 6.6-8.2 alkaline phosphatase, serum 78 U/L 28-114 aspartate aminotransferase (SGOT), serum 22 U/L 0-40 alanine aminotransferase (SGPT), serum 24 U/L 0-40 Lab Report: CHEM 14 - Lab CREATININE 0.77 0.50-1.00 Lab Report: FREE T4 - Chemistry thyroxine, serum, free 1.03 ng/dL 0.80-1.80 Lab Report: LIPID GRP - Chemistry HDL cholesterol, serum 46 mg/dL 40-125 triglyceride, serum, random 110 mg/dL 30-150 cholesterol, serum 183 mg/dL 100-200 Lab Report: MICRALUR - Chemistry creatinine, 24 hr specimen, urine 77 mg/dL Lab Report: MICRALUR - Urinalysis microalbumin, random, urine 23.7 ug/mL 0.0-20.0 microalbumin/creatinine ratio, urine 30.8 MG/GCR mg/g 0.0-30.0 Lab Report: TSH - Chemistry thyroid stimulating hormone, serum 2.085 u[iU]/mL 0.300-5.000 Encounters Code Encounter Date Provider Facility CPT-70290 Ofc Vst, Est Level IV 16:44:46 CDT Jacquelyn Richardson DO, FACP CPT-55227 Ofc Vst, New Level III 17:16:49 CDT Jacquelyn Richardson DO, FACP
--- OUTSIDE RECORDS SUMMARY | 2017-09-23 15:52 | XMS REPORT | Clinical Summary ---
Author Author User, [employer] Organization Jacquelyn Richardson DO, FACP Address Unknown [...] MG TABS 1 PO BID METFORMIN HCL 81729220348 Active Jacquelyn Richardson PRISTIQ 50 MG [id number] 1 PO daily DESVENLAFAXINE SUCCINATE 09419926856 Active Jacquelyn Richardson OMEPRAZOLE 40 MG CPDR 1 PO daily OMEPRAZOLE 04170134881 Active Jacquelyn Richardson METOPROLOL SUCCINATE ER 50 MG [id number] 1 PO daily METOPROLOL SUCCINATE 89120376542 Active Jacquelyn Richardson Vital Signs Date Name Value Unit [...] Value Unit Range Description Clinical Lists Update: HGA1C - Chemistry hemoglobin A1C, blood, as % of total hemoglobin 5.8 % Encounters Code Encounter Date Provider Facility [id number] Ofc Vst, Est Level IV 16:44:46 CDT Jacquelyn Richardson DO, FACP CPT-04809 Ofc Vst, New Level III 17:16:49 CDT Jacquelyn Richardson DO, FACP
--- OUTSIDE RECORDS SUMMARY | 2017-09-23 15:52 | XMS REPORT | Clinical Summary ---
Author Author User, [employer] Organization Jacquelyn Richardson DO, FACP Address Unknown [...] Richardson Anxiety state, unspecified HYPERGLYCEMIA, MILD 790.6 Resolved Jacquelyn Richardson Other abnormal blood chemistry UNSPECIFIED ADVERSE EFFECT OF INSULIN 995.23 Active Jacquelyn Richardson Unspecified adverse effect of insulin DIABETES MELLITUS, NONINSULIN DEPENDENT (NIDDM) 250.02 Active Jacquelyn Richardson Diabetes mellitus without mention of complication, type II or unspecified type, uncontrolled MENORRHAGIA 626.2 Active Jacquelyn Richardson Excessive or frequent menstruation Medication List Medication Instructions Start Date Stop Date Generic Name ND Status Provider Patient Instruction PRISTIQ 50 MG [id number] 1 PO daily DESVENLAFAXINE SUCCINATE 36577005770 Active Jacquelyn Richardson METFORMIN HCL 500 MG TABS 1 PO BID METFORMIN HCL 04160367029 Active Jacquelyn Richardson OMEPRAZOLE 40 MG CPDR 1 PO daily OMEPRAZOLE 25227979199 Active Jacquelyn Richardson METOPROLOL SUCCINATE ER 50 MG [id number] 1 PO daily METOPROLOL SUCCINATE 75593171931 Active Jacquelyn Richardson Vital Signs Date Name Value Unit Range Description blood pressure, diastolic - 8462-4 68 mm[Hg] BP jean blood pressure, systolic - 8480-6 110 mm[Hg] BP sys pulse rate E&M - 8867-4 72 /min Heart rate respiratory rate E&M - 9279-1 14 /min Resp rate temperature E&M 99.6 [degF] Body temperature weight E&M - 3141-9 208 [lb_av] Weight Measured blood pressure, diastolic - 8462-4 80 mm[Hg] [...] Estimated Glomerular Filtration Rate (calc) >60 mL/min/1.73m2 alkaline phosphatase, serum 78 U/L cholesterol/HDL ratio, serum, percent 3.98 anion gap, serum 3 sodium, serum 135 mmol/L triglyceride, serum, fasting 110 mg/dL bilirubin, serum, total 0.3 mg/dL alanine aminotransferase (SGPT), serum 24 U/L aspartate aminotransferase (SGOT), serum 22 U/L protein, total, serum 7.6 g/dL potassium, serum 4.0 mmol/L LDL cholesterol, serum 115 mg/dL thyroid stimulating hormone, serum 2.085 u[iU]/mL albumin, serum 4.3 g/dL hemoglobin A1C, blood, as % of total hemoglobin 5.5 % HDL cholesterol, serum 46 mg/dL thyroxine, serum, free 1.03 ng/dL creatinine, serum 0.77 mg/dL carbon dioxide, venous blood 28 mmol/L cholesterol, serum 183 mg/dL chloride, serum 104 mmol/L calcium, serum 9.7 mg/dL urea nitrogen, blood 15 mg/dL glucose, plasma fasting 87 mg/dL Clinical Lists [...] count, CSF 60.1 % platelet count 350 852-873 2115/08/21 hemoglobin, blood 13.4 g/dL 11.6-15.7 mean corpuscular [...] 87 mg/dL 70-100 sodium, serum 135 mmol/L 572-514 7944/08/21 protein total, urine 7.6 GM/DL 6.6-8.2 alkaline [...] 0.300-5.000 Encounters Code Encounter Date Provider Facility CPT-42147 Ofc Vst, Est Level IV 17:36:07 CDT Jacquelyn Richardson DO, FACLyndsay CPT-69942 Ofc Vst, Est Level IV 16:44:46 CDT Jacquelyn Richardson DO FAC[facility] CPT-53014 Ofc Vst, New Level III 17:16:49 CDT Jacquelyn Richardson DO, FACP
== END 2017-09-23 11:01 | disposition home or self-care (01) ==
LOC: EDUNIT# 09:25 → ER 09:28
DX: S96.912A Strain of unspecified muscle and tendon at ankle and foot level, left foot, initial encounter (principal); E78.00 Pure hypercholesterolemia, unspecified; I10 Essential (primary) hypertension; K21.9 Gastro-esophageal reflux disease without esophagitis; F32.9 Major depressive disorder, single episode, unspecified; Z85.42 Personal history of malignant neoplasm of other parts of uterus; Z88.8 Allergy status to other drugs, medicaments and biological substances; Z98.890 Other specified postprocedural states; Z90.49 Acquired absence of other specified parts of digestive tract; Z90.710 Acquired absence of both cervix and uterus; X50.0XXA Overexertion from strenuous movement or load, initial encounter; Y92.009 Unspecified place in unspecified non-institutional (private) residence as the place of occurrence of the external cause
CPT/HCPCS: 73630

== ENCOUNTER → 2018-05-25 | Outpatient (CLI) | payer BC ==
[~2018-05-25] MED LIST changes: -OXYC-202 PO; +OXYC1TAB12 PO
== END ==
LOC: RAD 14:59
PROVIDERS: ATTEND Obstetrics & Gynecology
DX: Z12.31 Encounter for screening mammogram for malignant neoplasm of breast (principal)
CPT/HCPCS: 77067

== ENCOUNTER → 2019-09-01 | Outpatient (CLI) | payer BC ==
[~2019-09-01] MED LIST changes: -METO-370 PO; +METO50TA7 PO; +OMEP40CA27 PO; -OMEP40CA36 PO
--- NOTE | 2019-09-01 11:05 | Diagnostic Imaging Report ---
INDICATION: Routine screening. COMPARISON is made with prior mammograms from 05/25/2018 and 01/27/2017. 2-D and 3-D bilateral screening mammography was performed with CAD. Both breasts are heterogeneously dense, limiting the sensitivity of mammography. The parenchymal pattern is stable. No dominant mass or malignant appearing microcalcifications are seen. Axillae are unremarkable. IMPRESSION: BI-RADS Category 2. No mammographic features suspicious for malignancy are identified. ACR BI-RADS Category 2: Benign findings. Result letter will be mailed to the patient. Note: At least 10% of breast cancer is not imaged by mammography. Dictated by: Dictated on workstation # [id number]
== END ==
LOC: RAD 08:17
PROVIDERS: ATTEND Obstetrics & Gynecology
DX: Z12.31 Encounter for screening mammogram for malignant neoplasm of breast (principal)
CPT/HCPCS: 77063; 77067